=== PATIENT | male | born 1965 | race Hispanic/Latino ===

== ENCOUNTER 2023-04-12 10:09 | Emergency (ER) | payer BC ==
[~2023-04-12] VITALS: Ht 172.7 cm; Wt 92.1 kg
[2023-04-12 10:50] LABS: BASOPHILS # (AUTO) 0.05 K/uL (0.00-0.20); BASOPHILS % (AUTO) 0.7 % (0.0-5.0); EOSINOPHILS # (AUTO) 0.32 K/uL (0.00-0.70); EOSINOPHILS % (AUTO) 4.6 % (0.0-8.0); HEMATOCRIT 43.6 % (42-54); IMMATURE GRANULOCYTE ABSOLUTE 0.02 K/uL (0-1); LYMPHOCYTES # (AUTO) 2.9 K/uL (1.0-4.8); LYMPHOCYTES % (AUTO) 41.7 % (21.0-51.0); MEAN CORPUSCULAR HEMOGLOBIN 32.4 pg (27.0-33.0); MEAN CORPUSCULAR HGB CONC 34.2 g/dL (32.0-36.0); MEAN CORPUSCULAR VOLUME 94.8 fL (79-99); MONOCYTES # (AUTO) 0.5 K/uL (0.1-1.0); MONOCYTES % (AUTO) 7.5 % (3.0-13.0); NEUTROPHILS # (AUTO) 3.2 K/uL (1.8-7.7); NEUTROPHILS % (AUTO) 45.2 % (40.0-77.0); PLATELET COUNT (AUTO) 162 K/uL (130-400); RED CELL DISTRIBUTION WIDTH 12.6 % (11.0-15.5)
[2023-04-12 11:00] LABS: INR 2.57 (0.85-1.15)
[2023-04-12 11:09] LABS: APPEARANCE,URINE CLEAR (CLEAR); BILIRUBIN,URINE NEGATIVE (NEGATIVE); COLOR,URINE YELLOW (YELLOW); GLUCOSE, URINE (UA) >=1000 mg/dL (NEGATIVE); KETONES,URINE NEGATIVE (NEGATIVE); LEUKOCYTE ESTERASE ,URINE NEGATIVE Leu/uL (NEGATIVE); NITRATE,URINE NEGATIVE (NEGATIVE); OCCULT BLOOD,URINE NEGATIVE (NEGATIVE); PH,URINE 5.5 (5.0-8.0); PROTEIN,URINE NEGATIVE (NEGATIVE); UROBILINOGEN,URINE 0.2 mg/dL (0.2-1.0)
[2023-04-12 11:13] LABS: ALBUMIN 3.5 g/dL (3.5-5.0); BILIRUBIN,TOTAL 0.7 mg/dL (0.2-1.0); CREATININE 0.8 mg/dL (0.5-1.5); MAGNESIUM 1.4 mg/dL (1.80-2.40); POTASSIUM 4.5 mmol/L (3.5-5.1); TOTAL PROTEIN, SERUM 7.9 g/dL (6.0-8.3)
[2023-04-12 11:18] LABS: ADD UA MICROSCOPIC YES
[2023-04-12 11:30] LABS: MUCUS,URINE RARE LPF (None Seen); RBC,URINE 0-1 /HPF (0-1); SQUAMOUS EPITHELIAL CELL,UR RARE /HPF (0-2); WBC,URINE 0-1 /HPF (0-1)
[2023-04-12] MEDS ORDERED: CEFTRIAXONE 1G VIAL IM ONE (12:30)
[2023-04-12] MEDS ORDERED: TETANUS/DIPHTHERIA TOXOID [ADULT] 0.5 ML VIAL IM ONE (12:30)
[2023-04-12] MEDS ORDERED: MAGNESIUM OXIDE 400 MG TABLET PO ONE ×2 (14:00→15:00)
[2023-04-12 14:16] VITALS: BP 154/79; PULSE 70; RESP 18; O2SAT 100
[2023-04-12] MEDS ORDERED: CEPH500B PO (14:16)
== END 2023-04-12 14:24 | disposition home or self-care (01) ==
LOC: EDH 10:09
DX: L03.116 Cellulitis of left lower limb (principal); E11.65 Type 2 diabetes mellitus with hyperglycemia; E83.42 Hypomagnesemia; I10 Essential (primary) hypertension; E78.00 Pure hypercholesterolemia, unspecified; M19.90 Unspecified osteoarthritis, unspecified site; Z98.890 Other specified postprocedural states
CPT/HCPCS: 99284; 71045; 83735; 84484; 80053; 85025; 85610; 85730; 87040 ×2; 83605; 86140; 81001; 36415; 90714; 73610; 96372; 90471; J0696